=== PATIENT | female | born 1995 | race Caucasian/White ===

== ENCOUNTER 2018-09-23 05:18 | Day surgery (SDC) | payer OTHER, MEDICAID ==
[~2018-09-23] VITALS: Ht 167.6 cm; Wt 75.4 kg
[2018-09-23] VITALS (13 sets, daily range): BP systolic 103–123; BP diastolic 64–81; PULSE 52–76; TEMP 97.2–98.3
[2018-09-23] MEDS ORDERED: TYLENOL 325MG325 MG PO (06:06)
[2018-09-23] MEDS ORDERED: PRENATAL (06:06)
[2018-09-23] MEDS ORDERED: PERCOCET 325 MG1 TA2 PO (08:03)
[2018-09-23] MEDS ORDERED: MOTRIN 800800 MG/TAB PO (08:03)
== END 2018-09-23 10:30 | disposition home or self-care (01) ==
LOC: SDCO 05:18 → OB 09:28 → SDCO 10:30
DX: O02.1 Missed abortion (principal); K21.9 Gastro-esophageal reflux disease without esophagitis; F17.210 Nicotine dependence, cigarettes, uncomplicated
CPT/HCPCS: OP; J0690; J1885; J2250; J2704; J3010; J7120